=== PATIENT | female | born 1980 | race Caucasian/White ===

== ENCOUNTER 2023-04-26 19:28 | Inpatient (IN) | payer OTHER, SELFPAY ==
[2023-04-26] VITALS (24 sets, daily range): BP systolic 131–193; BP diastolic 68–95; PULSE 56–101; RESP 13–38; TEMP 36–37.3; O2SAT 94–99; BMI 34.7
--- NOTE | 2023-04-26 19:53 | DI.RAD.S_ITS ---
PROCEDURE: XR FOREARM LT 2V INDICATIONS: trauma TECHNIQUE: 2 views of the forearm were acquired. COMPARISON: None. FINDINGS: Bones: No dislocations. No suspicious bony lesions. There are angulated fractures at the distal diaphysis of both the radius and ulna, mildly comminuted at the ulnar fracture and with fracture planes remaining in general apposition. Soft tissues: No suspicious soft tissue calcifications or masses. IMPRESSION: Angulated mildly comminuted fractures involving the distal radius and ulna diaphyses. Dictated by: Dae Wang M.D. on 04/26/2023 at 20:30 Approved by: Dae Wang M.D. on 04/26/2023 at 20:34
[2023-04-26] MEDS: KETOROLAC 30 MG/ML VIAL 15 MG IV (20:00)
[2023-04-26] MEDS: ONDANSETRON 4 MG/2 ML INJ IV (20:00)
[2023-04-26] MEDS: HYDROMORPHONE 0.5 MG INJ IV ×2 (20:00→20:18)
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
[2023-04-26 20:20] LABS: Add Manual Diff / Slide Review NO; Basophils Absolute Auto 100 /uL (0-100); Basophils Percent Auto 0.9 % (0-2); Eosinophils Absolute Auto 0 /uL (0-450); Eosinophils Percent Auto 0.3 % (2-4); Hematocrit 37.3 % (36-46); Hemoglobin 12.4 g/dL (12.0-16.0); Lymphocytes Absolute Auto 1300 /uL (1100-4500); Mean Corpuscular HGB Conc 33.4 % (30-36); Mean Corpuscular Hemoglobin 31.2 PG (26-34); Mean Corpuscular Volume 93.6 fL (80-100); Monocytes Absolute Auto 600 /uL (0-900); Monocytes Percent Auto 5.4 % (3-14); Neutrophils Absolute Auto 8500 /uL (1500-7000); Neutrophils Percent Auto 81.4 % (50-75); Platelet Count 281 X10^3/uL (150-400); Red Blood Cell Count 3.98 X10^6/uL (4.0-5.2); Red Cell Distribution Width 13.1 % (11.6-14.8); White Blood Cell Count 10.4 X10^3/uL (4.5-11.0)
[2023-04-26 20:33] LABS: Alanine Aminotransferase 35 IU/L (<35); Albumin 4.6 g/dL (3.5-5.0); Albumin Globulin Ratio 1.4 (1.0-2.8); Alkaline Phosphatase 39 U/L (38-126); Aspartate Aminotransferase 34 IU/L (14-36); BUN Creatinine Ratio 29.1 (6-22); Bilirubin Total 0.4 mg/dL (0.2-1.3); Blood Urea Nitrogen 23 mg/dL (7-17); Calcium 9.6 mg/dL (8.4-10.2); Carbon Dioxide 28 mmol/L (22-32); Chloride 102 mmol/L (98-107); Estimated Glomerular Filt Rate > 60 mL/min (>60); Globulin 3.3 g/dL (1.7-4.1); Glucose 116 mg/dL (70-100); HEMOLYSIS 23 (0-50); Lipase 113 U/L (23-300); Potassium 4.3 mmol/L (3.4-5.1); Sodium 138 mmol/L (137-145); Total Protein 7.9 g/dL (6.3-8.2)
[2023-04-26] MEDS: KETAMINE 500 MG/10 ML INJ 85 MG IV (21:15)
--- NOTE | 2023-04-26 22:26 | DI.RAD.S_ITS ---
PROCEDURE: XR FOREARM LT 2V INDICATIONS: post reduction TECHNIQUE: 2 views of the forearm were acquired. COMPARISON: [facility], CR, XR FOREARM LT 2V, 04/26/2023, 19:53. FINDINGS: Bones: No previously unidentified fractures or dislocations. No suspicious bony lesions. There is significant improved malalignment after reduction and splinting. Soft tissues: No suspicious soft tissue calcifications or masses. IMPRESSION: Successful closed reduction and splinting in near normal anatomic alignment. Dictated by: Dae Wang M.D. on 04/26/2023 at 22:41 Approved by: Dae Wang M.D. on 04/26/2023 at 22:42
[2023-04-26] MEDS: LORazepam 2 MG/ML INJ 0.5 MG IV (23:00)
[2023-04-26] MEDS: SODIUM CHLORIDE 0.9% 1,000 ML 125 ML IV (23:48)
[2023-04-27] VITALS (14 sets, daily range): BP systolic 131–176; BP diastolic 70–102; PULSE 63–91; RESP 12–19; TEMP 36.2–37; O2SAT 91–100; BMI 34.7
--- NOTE | 2023-04-27 02:37 | PC.NURSE ---
Pt admitted from ER around 2229. Pt alert and able to transfer to bed with 1 assist. Pt does fall asleep while conversing with this nurse. According to ER Staff pt was having a hot flash/nauseous after iv pain medications given. ER staff stated she got IV lorazepam and an 1L IVF bolus. pt allergic to percocet states it makes me nauseous and I start vomiting. Plan is to give patient IV dilaudid as needed for pain tonight since she is NPO. Unable to do medication reconciliation due to patient still sedated, According to her she is on a prednisone laquita fpr gout. will have spouse bring in medication list in the morning. Plan is for patient to have surgery early in the am.
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
[2023-04-27] MEDS: ONDANSETRON 4 MG/2 ML INJ IV ×2 (08:28→12:59)
[2023-04-27] MEDS: LACTATED RINGERS 1,000 ML 42 ML IV ×3 (08:28→13:29)
[2023-04-27] MEDS: HYDROMORPHONE 2 MG INJ 0.5 MG IV (08:42)
--- NOTE | 2023-04-27 08:44 | PC.NURSE ---
Addendum entered by Stephanie Whitaker R.N. 04/27/23 15:39: pt c/o left arm pain 7/10 medicated with Dilaudid 2mg po with zofran Addendum entered by Stephanie Whitaker R.N. 04/27/23 15:23: pt more awake up to bsc with min assist-started dc instructions Addendum entered by Stephanie Whitaker R.N. 04/27/23 14:02: 1315 to room 210 from Pacu- c/o left arm surgical pain then nods off back to sleep snoring recently medicated in pacu, vss attempting to void using bedpan.. left arm in hard cast with wrap and in sling ice applied, unable to assess radial pulse d/t cast placement, pt can wiggle fingers, good sensation and cap refill less the 2 sec. vss family in room Original Note: 0820 pt up to BR with SBA voided and changed clothes for surgery-to OR at 0830 family in room.
[2023-04-27] MEDS: CEFAZOLIN 2 GM/100 ML PREMIX 100 ML IV ×2 (09:34→19:37)
--- NOTE | 2023-04-27 09:54 | SUR.OPER ---
Supine on padded OR bed, head on pillow, RIGHT arm secured on padded arm boards at <90 degrees abduction, LEFT ARM ON HAND TABLE, legs uncrossed, safety belt at thigh, tape over blanket over lower legs.
[2023-04-27] MEDS: BUPIVACAINE 0.25% (PF) 30 ML, EPINEPHrine 0.15 MG INJ (10:01)
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
[2023-04-27] MEDS: OXYCODONE/ACETAMINOPHEN 5/325 TABLET 1 TAB PO (12:59)
[2023-04-27] MEDS: ONDANSETRON 4 MG ODT PO ×2 (15:35→19:36)
[2023-04-27] MEDS: HYDROMORPHONE 2 MG TABLET PO (15:36)
[2023-04-27] MEDS: HYDROMORPHONE 1 MG INJ 0.5 MG IV (19:37)
[2023-04-27] MEDS: DOCUSATE 100 MG CAPSULE PO (21:01)
[2023-04-28] MEDS: CEFAZOLIN 2 GM/100 ML PREMIX 100 ML IV (01:42)
[2023-04-28] MEDS: HYDROMORPHONE 2 MG TABLET PO ×3 (03:49→10:29)
[2023-04-28 04:30] VITALS: BP 133/70; PULSE 63; RESP 16; TEMP 36.2; O2SAT 99
[2023-04-28] MEDS: DOCUSATE 100 MG CAPSULE PO (08:32)
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
== END 2023-04-28 10:41 | disposition home or self-care (01) | DRG 512 ==
LOC: ED 19:50 → AC 21:51
PROVIDERS: Admitting Provider Orthopaedic Surgery Foot and Ankle Surgery; Emergency Provider Emergency Medicine; Referring Provider Emergency Medicine; Visit Provider Orthopaedic Surgery Foot and Ankle Surgery
PROC: 0PSJ04Z Reposition Left Radius with Internal Fixation Device, Open Approach (ICD-10-PCS; principal; 2023-04-27 08:30)
DX: S52.602A Unspecified fracture of lower end of left ulna, initial encounter for closed fracture (principal); S52.332A Displaced oblique fracture of shaft of left radius, initial encounter for closed fracture; V86.55XA Driver of 3- or 4- wheeled all-terrain vehicle (ATV) injured in nontraffic accident, initial encounter; Z20.822 Contact with and (suspected) exposure to COVID-19
CPT/HCPCS: 25505; 25650; 36415; 73090; 80053; 83690; 85025; 94760; 96374; 96375; 99285; J0171; J0690; J1100; J1170; J1885; J2060; J2405; J2704; J3010

== ENCOUNTER → 2024-05-27 08:16 | Outpatient (CLI) | payer OTHER, SELFPAY ==
[2023-04-26 23:39] VITALS: BMI 34.7
--- NOTE | 2024-05-27 08:19 | DI.MRI.S_ITS ---
PROCEDURE: MR SHOULDER LT W CON INDICATIONS: PAIN IN LEFT SHOULDER TECHNIQUE: After the administration of 12 mL of dilute intra-articular Gadolinium contrast, oblique coronal T1 and T2 spin echo with fat saturation, oblique sagittal T1 spin echo with and without fat saturation, oblique sagittal T2 fast spin echo with fat saturation, axial T1 spin echo with fat saturation through the shoulder. COMPARISON: None. FINDINGS: Image quality: Excellent. Rotator cuff: Low-grade articular surface partial-thickness tear involving distal supraspinatus at its insertion on the humeral head is seen. Distal infraspinatus tendinosis is seen. The subscapularis tendon is intact. No full-thickness rotator cuff tendon rupture. No rotator cuff muscle atrophy on sagittal images. Bones and bursae: No bone marrow contusions or fractures. Mild acromioclavicular joint osteoarthritic changes are seen with joint space narrowing and downward osteophyte formation depressing the musculotendinous junction of supraspinatus. Type 2 acromion, without an os acromiale. Subcortical cystic areas are seen in posterior inferior glenoid. Capsule and soft tissues: There is subtle T2 hyperintense signal and contrast extension involving posterior inferior labrum. The glenohumeral ligaments appear intact. The long head of the biceps tendon demonstrates normal location and morphology. The rotator interval appears normal, without fibrosis. The coracohumeral ligament is of normal thickness. No intra-articular bodies. IMPRESSION: 1. Low-grade articular surface partial-thickness tear involving distal supraspinatus. Distal infraspinatus tendinosis. No full-thickness rotator cuff tendon rupture. No muscle atrophy. 2. Mild acromioclavicular joint osteoarthritis. No acute fracture or dislocation. Subcortical cystic area involving posterior inferior glenoid is seen. No gross loose bodies. 3. Suggestion of posterior inferior labral tear. Dictated by: Miguel Dye M.D. on 05/27/2024 at 12:43 Approved by: Miguel Dye M.D. on 05/27/2024 at 12:48
--- NOTE | 2024-05-27 08:19 | DI.RAD.S_ITS ---
PROCEDURE: FL SHOULDER INJECTION MR/CT LT INDICATIONS: PAIN IN LEFT SHOULDER COMPARISON: None. TECHNIQUE: The indications, alternatives, benefits, risks, and complications of the procedure were explained to the patient. Written informed consent was obtained and placed in the chart. The shoulder was examined fluoroscopically and a site for needle placement chosen for entry into the glenohumeral joint from an anterior approach. The skin was prepped and draped in a sterile fashion, and 1% lidocaine infiltrated from skin down to joint capsule. A spinal needle was inserted into the glenohumeral joint, and a small amount of iodinated contrast media injected to confirm intra-articular placement of the needle tip. This was followed by approximately 12 mL dilute solution of a gadolinium containing MR contrast agent. The needle was removed and a dressing was applied. The patient was given postprocedural instructions and sent to the MR suite for MR imaging. FINDINGS: A single fluoroscopic spot image demonstrates intra-articular location of injected iodinated contrast. IMPRESSION: Successful fluoroscopically guided administration of dilute Gadolinium solution into the shoulder joint for MR arthrogram. Dictated by: Miguel Dye M.D. on 05/27/2024 at 13:49 Approved by: Miguel Dye M.D. on 05/27/2024 at 13:49
[2024-05-27] MEDS: LIDOCAINE 1% 20 ML INJ (09:06)
[2024-05-27] MEDS: SODIUM CHLORIDE 0.9 % 20 ML VIAL IV (09:07)
== END ==
LOC: RAD 08:18
PROVIDERS: Referring Provider Nurse Practitioner Family; Visit Provider Nurse Practitioner Family
DX: M75.112 Incomplete rotator cuff tear or rupture of left shoulder, not specified as traumatic (principal); M19.012 Primary osteoarthritis, left shoulder; M25.512 Pain in left shoulder
CPT/HCPCS: 23350; 73040; 73222; A9579; Q9967

== ENCOUNTER → 2025-01-25 16:59 | Outpatient (CLI) | payer OTHER, SELFPAY ==
[2023-04-26 23:39] VITALS: BMI 34.7
[2025-01-25 18:38] LABS: Follicle Stimulating Hormone 3.69 mIU/mL
[2025-01-25 18:54] LABS: Estradiol, Total 32.4 pg/mL
== END ==
PROVIDERS: Referring Provider Obstetrics & Gynecology; Visit Provider Obstetrics & Gynecology
DX: L65.9 Nonscarring hair loss, unspecified (principal); N95.1 Menopausal and female climacteric states
CPT/HCPCS: 36415; 82627; 82670; 83001; 83002; 84402; 84403

== ENCOUNTER → 2025-02-04 17:12 | Outpatient (CLI) | payer OTHER, SELFPAY ==
[2023-04-26 23:39] VITALS: BMI 34.7
--- NOTE | 2025-02-04 17:13 | DI.RAD.S_ITS ---
PROCEDURE: XR LUMBAR SPINE MIN 4V INDICATIONS: BACK PAIN TECHNIQUE: 5 views of the lumbar spine were acquired, including bilateral oblique views. COMPARISON: None. FINDINGS AND IMPRESSION: 7 mm of L4 on L5 anterolisthesis. Vertebral body heights are well maintained. No traumatic subluxation. On oblique views, there is no definite pars defects, although evaluation is limited by overlying bowel gas. Cholecystectomy clips. Moderate fecal loading. IUD in place. If there is high concern for further derangement, consider MRI evaluation. Dictated by: Adrian Mahoney M.D. on 02/04/2025 at 17:40 Approved by: Adrian Mahoney M.D. on 02/04/2025 at 17:41
== END ==
PROVIDERS: Referring Provider Physical Medicine & Rehabilitation; Visit Provider Physical Medicine & Rehabilitation
DX: M54.9 Dorsalgia, unspecified (principal); Z97.5 Presence of (intrauterine) contraceptive device
CPT/HCPCS: 72110

== ENCOUNTER → 2025-03-14 16:43 | Outpatient (CLI) | payer OTHER, SELFPAY ==
[2023-04-26 23:39] VITALS: BMI 34.7
--- NOTE | 2025-03-14 16:44 | DI.MRI.S_ITS ---
PROCEDURE: MR LUMBAR SPINE WO CON INDICATIONS: Progressive axial low back pain episodic TECHNIQUE: Noncontrast sagittal T1 spin echo and T2 fast echo, sagittal STIR, and T2 fast spin echo through the lumbar spine. In cases with scoliosis, additional coronal T2 fast spin echo may be performed. COMPARISON: [facility], CR, XR LUMBAR SPINE MIN 4V, 02/04/2025, 17:19. FINDINGS: Image quality: Excellent. Alignment and Curvature: 4 mm anterolisthesis L4 on L5. Bone Marrow: Marrow is of normal overall signal. No acute vertebral body compression fractures. Spinal Cord: Conus medullaris terminates at the top of L1 level. Visualized cord demonstrates normal signal and size. Paraspinous Soft Tissues: No paravertebral masses. T12-L1: Normal appearance. L1-L2: Normal appearance. L2-L3: Normal appearance. L3-L4: Disc desiccation. Disc bulge. Mild facet hypertrophy. Left foraminal annulus tear. No canal stenosis or foraminal stenosis. L4-L5: 4 mm anterolisthesis. Disc bulge. Somewhat prominent facet and ligament hypertrophy. Rejz-hq-hvfubodb canal stenosis. No significant foraminal stenosis. Reference sagittal image 10 of series 2 and axial image 20 of series 6. L5-S1: Disc bulge. Facet hypertrophy. No canal stenosis or foraminal stenosis. IMPRESSION: 1. Multilevel underlying facet arthropathy. 2. Wmcs-ur-jltxatqu canal stenosis at L4-L5. 3. No canal stenosis or foraminal stenosis at other levels. Dictated by: José Luis Gale M.D. on 03/15/2025 at 8:36 Approved by: José Luis Gale M.D. on 03/15/2025 at 8:41
== END ==
PROVIDERS: Referring Provider Physical Medicine & Rehabilitation; Visit Provider Physical Medicine & Rehabilitation
DX: M43.16 Spondylolisthesis, lumbar region (principal); M47.816 Spondylosis without myelopathy or radiculopathy, lumbar region; M47.817 Spondylosis without myelopathy or radiculopathy, lumbosacral region; M48.061 Spinal stenosis, lumbar region without neurogenic claudication
CPT/HCPCS: 72148

== ENCOUNTER 2025-03-16 10:11 | Day surgery (SDC) | payer OTHER, SELFPAY ==
[2023-04-26 23:39] VITALS: BMI 34.7
[2025-03-16] MEDS: LACTATED RINGERS 1,000 ML 42 ML IV (10:35)
[2025-03-16 10:44] VITALS: BP 129/81; PULSE 61; RESP 16; TEMP 36.4; O2SAT 99
[2025-03-16] MEDS: ONDANSETRON 4 MG/2 ML INJ IV (10:53)
--- NOTE | 2025-03-16 11:00 | PM.HP.IH.1 ---
History of Present Illness History of Present Illness Date Patient Seen: 03/16/25 Chief complaint: SDC Narrative: For screening colonoscopy [facility] Medical History (Updated 03/09/25 @ 09:13 by Gama Willett DO) Facet arthropathy, lumbar Lumbar radiculopathy Spondylolisthesis at L4-L5 level Social History household members: spouse Smoking Status: Never smoker alcohol intake: current Meds Home Medications and Allergies Home Medications Medication Instructions Recorded Confirmed Type meloxicam 7.5 mg tablet 7.5 mg PO BID 01/25/25 03/16/25 History tizanidine 4 mg tablet 4 mg PO 3XD 01/25/25 03/16/25 History levonorgestrel 21 mcg/24 hr (up to intrauterine 01/28/25 03/09/25 History 8 years) 52 mg intrauterine device (Mirena) acetaminophen 650 mg 650 mg PO Q12H 03/09/25 03/16/25 History tablet,extended release (Tylenol Arthritis Pain) loratadine 10 mg tablet (Claritin) 10 mg PO DAILY 03/09/25 03/16/25 History Allergies Allergy/AdvReac Type Severity Reaction Status Date / Time oxycodone [From Percocet] Allergy Mild Nausea Verified 03/16/25 10:37 steri strips AdvReac Uncoded 03/16/25 10:37 Exam Vital Signs (past 8 hours): - 03/16/25 10:44 Temperature 97.6 F Pulse Rate 61 Respiratory Rate 16 Blood Pressure 129/81 Pulse Oximetry 99 Oxygen Delivery Method Room Air Oxygen Delivery Method Room Air Narrative Exam Narrative: Oropharynx free of lesions Chest clear to auscultation percussion Cardiac exam reveals no S3 or murmur Assessment & Plan Assessment & Plan narrative: Need for 1st screening colonoscopy. Risks, benefits, alternatives have been explained. Time-Based Coding :: [TOTAL MINUTES] spent with patient and on the chart (including review of chart, obtaining history, exam, reviewing outside data, placing orders, documenting exam and treatment plan, and counseling patient) on [DATE]. PROFEE Bone Density Technician Document charge(s): No
--- NOTE | 2025-03-16 11:02 | PM.OP.COLON ---
Operative Date/Time/Diagnoses Date of procedure: 03/16/25 Time of procedure: 11:21 Pre-op diagnosis: See indication and findings Post-op diagnosis: same Procedure & Clinicians Study performed: Colonoscopy Same procedure as scheduled: Yes Indications: First screening Surgeon: Destinee Ya Procedure Notes Procedure in detail: After informed consent was obtained the patient was placed in left lateral decubitus position. The video colonoscope was introduced the rectum slowly advanced cecum. Preparation was good. On slow withdrawal mucosa was carefully examined. The scope was removed. The patient tolerated procedure well. Blood loss none Complications none Sedation mac Findings 1. Normal colonoscopy to cecum Patient should have follow-up colonoscopy in 10 years
[2025-03-16 11:23] VITALS: BP 112/79; PULSE 72; RESP 14; TEMP 36.4; O2SAT 99
[2025-03-16 11:29] VITALS: BP 128/89; PULSE 80; RESP 23; O2SAT 99
[2025-03-16 11:32] VITALS: BP 113/81; PULSE 67; RESP 14; TEMP 36.4; O2SAT 99
== END 2025-03-16 11:47 | disposition home or self-care (01) ==
PROVIDERS: Visit Provider Internal Medicine Gastroenterology
PROC: 0DJD8ZZ Inspection of Lower Intestinal Tract, Via Natural or Artificial Opening Endoscopic (ICD-10-PCS; CPT 45378; principal; 2025-03-16 11:30)
DX: Z12.11 Encounter for screening for malignant neoplasm of colon (principal)
CPT/HCPCS: 45378; J2405; J2704

== ENCOUNTER 2025-03-29 08:12 | Outpatient (CLI) | payer OTHER, SELFPAY ==
[2023-04-26 23:39] VITALS: BMI 34.7
[2025-03-23 11:58] VITALS: BMI 34.7
[2025-03-29] VITALS (10 sets, daily range): BP systolic 146–176; BP diastolic 78–97; PULSE 55–75; RESP 14–16; TEMP 36.6; O2SAT 96–99
[2025-03-29] MEDS: MIDAZOLAM 2 MG/2 ML VIAL IV (09:21)
[2025-03-29] MEDS: LIDOCAINE 1% 20 ML 3 ML INJ (09:25)
[2025-03-29] MEDS: iopamidoL 15 ML VIAL 3 ML INJ (09:26)
[2025-03-29] MEDS: BUPIVACAINE 0.5% (PF) 10 ML VIAL 5 ML INJ (09:26)
--- NOTE | 2025-03-29 09:44 | P.PCN_ITS ---
Date/Time/Diagnoses Date of procedure: 03/29/25 Time of procedure: 09:44 Pre-procedure diagnosis: 1. FACET ARTHROPATHY Post-procedure diagnosis: same Procedure Notes Procedure: 1. BILATERAL- L4, L5 and S1 DIAGNOSTIC MB BLOCKS with LA Anesthetic Indications: Gloria is referred for treatment of Bilateral Axial LBP. Physician: Gama Willett Total Fluoroscopy time (seconds): 12 Total sedation minutes: 19 Complications: none Procedure in detail & Post-procedure care: DESCRIPTION OF PROCEDURE Fluoroscopically guided, contrast-controlled bilateral L4, L5 and S1 medial branch blocks with 0.5cc of 0.5% Marcaine. Following review of allergy and review of potential side effects and complications, including, but not necessarily limited to, infection, allergic reaction, local tissue breakdown, nerve injury, paralysis, stroke and possible , the patient indicated that the patient understood and agreed to proceed. An informed consent document was signed by the patient, witnessed by a nurse, and placed in the patient's chart. After review of previous anaesthesic history and IV conscious sedation the patient was deemed safe to proceed with today's procedure with IV conscious sedation as ASA class II designation. Safety time-out was performed to confirm patient ID, procedure to be performed and site of procedure. IV sedation was accomplished with a combination of 4mg of Versed was administered by the RN after DO order, titrated to patient comfort during the course of the procedure while the patient remained responsive to all verbal commands In the prone position, following sterile prep and drape of the lumbar region, the right L4, L5 and S1 anatomical location of the medial branch of the dorsal ramus was identified fluoroscopically. Subsequently an anesthetic skin wheal using 1% lidocaine solution was initiated at each of the anatomical spots. Subsequently then a 22-gauge 3.5-inch spinal needle was atraumatically introduced and advanced under fluoroscopic guidance at each of the corresponding sites at the right L4, L5 and S1 MB. After negative aspiration, 0.2cc of Isovue 200 was injected, confirming placement without vascular or intrathecal uptake. Subsequently then 0.5cc of 0.5% Marcaine solution was injected at each of the corresponding sites at the right L4, L5 and S1 medial branch locations. The identical procedure was replicated on the left. The patient tolerated the procedure well without signs or symptoms of complications prior to transfer to the recovery area continued monitoring without incident. Post-procedure, the patient was monitored initiating provocative activities to measure the amount of relief from block of the facetogenic pain. The patient reported a VAS of 7 prior to the procedure and a post-procedure VAS of 1. It has been a pleasure to assist in the diagnostic and therapeutic care of your patient. POST OP INSTRUCTIONS The patient was provided with a Pain Log to complete over the next several hours and subsequent days prior to the patient's follow up with the ordering physician. If the patient has professor of theatre relief to the solution applied, then they may be a candidate for medial branch rhizotomy. The patient is aware, was provided, once again, with a Pain Log and will follow up with the referring physician for review and clinical correlation
--- NOTE | 2025-03-31 17:24 | PC.NURSE ---
2 mg of IV Midazolam was administered at 0921 and at 0929 for a total of 4 mg of IV Midazolam on 03/29/25 during the procedure per verbal orders from Dr. Willett.
== END 2025-03-29 10:00 | disposition home or self-care (01) ==
LOC: RAD 08:13
PROVIDERS: Referring Provider Physical Medicine & Rehabilitation; Visit Provider Physical Medicine & Rehabilitation
DX: M47.816 Spondylosis without myelopathy or radiculopathy, lumbar region (principal)
CPT/HCPCS: 64491; 64493; 99152; J2250

== ENCOUNTER 2025-04-28 08:15 | Outpatient (CLI) | payer OTHER, SELFPAY ==
[2025-03-23 11:58] VITALS: BMI 34.7
[2025-04-28] VITALS (10 sets, daily range): BP systolic 147–183; BP diastolic 77–99; PULSE 56–75; RESP 14–16; TEMP 36.6; O2SAT 98–100
[2025-04-28] MEDS: MIDAZOLAM 2 MG/2 ML VIAL IV ×3 (09:11→09:18)
[2025-04-28] MEDS: LIDOCAINE 1% 20 ML 5 ML INJ (09:27)
[2025-04-28] MEDS: iopamidoL 15 ML VIAL 3 ML INJ (09:27)
[2025-04-28] MEDS: LIDOCAINE 2% INJ MDV 20ML 5 ML INJ (09:28)
--- NOTE | 2025-04-28 10:11 | P.PCN_ITS ---
Date/Time/Diagnoses Date of procedure: 04/28/25 Time of procedure: 10:11 Pre-procedure diagnosis: 1. FACET ARTHROPATHY Post-procedure diagnosis: same Procedure Notes Procedure: 1. BILATERAL- L4, L5 and S1 DIAGNOSTIC MB BLOCKS with SA Anesthetic Indications: Gloria is referred for treatment of Bilateral Axial LBP. Physician: Gama Willett Total Fluoroscopy time (seconds): 8 Total sedation minutes: 21 Complications: none Procedure in detail & Post-procedure care: DESCRIPTION OF PROCEDURE Fluoroscopically guided, contrast-controlled bilateral L4, L5 and S1 medial branch blocks with 0.5cc of 2% Lidocaine. Following review of allergy and review of potential side effects and complications, including, but not necessarily limited to, infection, allergic reaction, local tissue breakdown, nerve injury, paralysis, stroke and possible , the patient indicated that the patient understood and agreed to proceed. An informed consent document was signed by the patient, witnessed by a nurse, and placed in the patient's chart. After review of previous anaesthesic history and IV conscious sedation the patient was deemed safe to proceed with today's procedure with IV conscious sedation as ASA class II designation. Safety time-out was performed to confirm patient ID, procedure to be performed and site of procedure. IV sedation was accomplished with a combination of 4mg of Versed was administered by the RN after DO order, titrated to patient comfort during the course of the procedure while the patient remained responsive to all verbal commands In the prone position, following sterile prep and drape of the lumbar region, the right L4, L5 and S1 anatomical location of the medial branch of the dorsal ramus was identified fluoroscopically. Subsequently an anesthetic skin wheal using 1% lidocaine solution was initiated at each of the anatomical spots. Subsequently then a 22-gauge 3.5-inch spinal needle was atraumatically introduced and advanced under fluoroscopic guidance at each of the corresponding sites at the right L4, L5 and S1 MB. After negative aspiration, 0.2cc of Isovue 200 was injected, confirming placement without vascular or intrathecal uptake. Subsequently then 0.5cc of 2% Lidocaine solution was injected at each of the corresponding sites at the right L4, L5 and S1 medial branch locations. The identical procedure was replicated on the left. The patient tolerated the procedure well without signs or symptoms of complications prior to transfer to the recovery area continued monitoring without incident. Post-procedure, the patient was monitored initiating provocative activities to measure the amount of relief from block of the facetogenic pain. The patient reported a VAS of 7 prior to the procedure and a post-procedure VAS of 1. It has been a pleasure to assist in the diagnostic and therapeutic care of your patient. POST OP INSTRUCTIONS The patient was provided with a Pain Log to complete over the next several hours and subsequent days prior to the patient's follow up with the ordering physician. If the patient has energy conservation technician relief to the solution applied, then they may be a candidate for medial branch rhizotomy. The patient is aware, was provided, once again, with a Pain Log and will follow up with the referring physician for review and clinical correlation
== END 2025-04-28 09:55 | disposition home or self-care (01) ==
LOC: RAD 08:15
PROVIDERS: Referring Provider Physical Medicine & Rehabilitation; Visit Provider Physical Medicine & Rehabilitation
DX: M47.816 Spondylosis without myelopathy or radiculopathy, lumbar region (principal); M47.817 Spondylosis without myelopathy or radiculopathy, lumbosacral region
CPT/HCPCS: 64493; 64494; 99152; J2250

== ENCOUNTER 2025-05-19 07:28 | Outpatient (CLI) | payer OTHER, SELFPAY ==
[2025-03-23 11:58] VITALS: BMI 34.7
[2025-05-19] VITALS (13 sets, daily range): BP systolic 153–183; BP diastolic 76–103; PULSE 53–72; RESP 11–18; TEMP 36.8; O2SAT 98–100
[2025-05-19] MEDS: MIDAZOLAM 2 MG/2 ML VIAL IV ×2 (08:32→08:39)
[2025-05-19] MEDS: BUPIVACAINE 0.5% (PF) 10 ML VIAL 5 ML INJ (08:38)
[2025-05-19] MEDS: LIDOCAINE 1% 20 ML 5 ML INJ (08:38)
[2025-05-19] MEDS: MIDAZOLAM 2 MG/2 ML VIAL 1 MG IV (08:56)
--- NOTE | 2025-05-19 09:17 | P.PCN_ITS ---
Date/Time/Diagnoses Date of procedure: 05/19/25 Time of procedure: 09:17 Pre-procedure diagnosis: 1. RECALCITRANT FACET ARTHROPATHY Post-procedure diagnosis: same Procedure Notes Procedure: 1. BILATERAL L4 AND L5 MEDIAL BRANCH RADIOFREQUENCY NEUROTOMY AND S1 DORSAL RAMUS BRANCH RADIOFREQUENCY NEUROTOMY Indications: Aditi is referred for treatment of facet arthropathy. Physician: Gama Willett Total Fluoroscopy time (seconds): 23 Total sedation minutes: 40 Complications: none Procedure in detail & Post-procedure care: DESCRIPTION OF PROCEDURE Bilateral L4 and L5 medial branch radiofrequency neurotomy and bilateral S1 dorsal ramus radiofrequency neurotomy under fluoroscopy with conscious sedation. The patient is well known to this clinic having undergone previous facet injections with good but temporary relief. The patient has experienced appropriate, concordant relief with previous facet and median branch blocks but the patient's pain has been recalcitrant to further conservative measures. Therefore, based upon the patient's relief and persistent symptoms, the patient is considered an appropriate candidate for facet rhizotomy. All of the patient's questions regarding the risks versus benefits of the procedure, including, but not limited to, bleeding, infection, temporary as well as lasting nerve injury, paralysis, stroke, and , as well treatment alternatives were answered to satisfaction. After obtaining informed consent, denial of pertinent drug allergies, as well as being made aware of the potential risks of bleeding, infection, spinal cord trauma, paralysis, temporary and permanent nerve damage, seizure, stroke, and possible , the patient was brought to the fluoroscopy suite and positioned prone on the fluoroscopy table. The lumbar region was prepped in usual sterile fashion and covered with a fenestrated drape in the usual sterile fashion. Appropriate monitors applied including pulse oximeter, pulse, and blood pressure for regular monitoring thr oughout the procedure. After review of previous anaesthesic history and IV conscious sedation the patient was deemed safe to proceed with today's procedure with IV conscious sedation as ASA class II designation. Safety time-out was performed to confirm patient ID, procedure to be performed and site of procedure. IV sedation was accomplished with a combination of 5mg of Versed administered by the RN after DO order, titrated to patient comfort during the course of the procedure while the patient remained responsive to all verbal commands. After local infiltration using 1% lidocaine, under fluoroscopic guidance, a 10- cm RF insulated needle with a 10-mm active tip was positioned parallel to the junction of the right sacral ala and the superior articulating process where the S1 dorsal ramus resides. Needle placement was confirmed with motor stimulation of .5v on the right which produced local stimulation without radicular component. The stimulation was then increased to 2v with, once again, only local multifidus stimulation without radicular component. The needle was then removed and the identical procedure was performed along the length of the right L5 medial branch with motor stimulation at .7v on the right. The identical procedure was once again performed along the length of the right L4 medial branch with motor stimulation of .5v on the right. The medial branches were then anesthetised with 0.5% Marcaine. This was then followed by two discreet lesions performed at 80 degrees Celsius for 90 seconds each. The identical procedure was repeated on the left. The patient tolerated the procedure well without signs or symptoms of complications prior to transfer to the recovery area continued monitoring without incident. The patient was then transferred to the recovery area where they were observed for an appropriate period of time after the injection. The patient reported a VAS score of 8 prior to the procedure and a post-procedure VAS of 1. POST OP INSTRUCTIONS The patient was provided a Pain Log to continue to record the patient's response to the target-specific procedure prior to the patient's follow-up visit with the referring physician. Additionally, specific post-injection care instructions and a contact number to our office were provided if concerns arise regarding possible complications associated with the procedure are suspected.
== END 2025-05-19 09:30 | disposition home or self-care (01) ==
LOC: RAD 07:28
PROVIDERS: Referring Provider Physical Medicine & Rehabilitation; Visit Provider Physical Medicine & Rehabilitation
DX: M47.816 Spondylosis without myelopathy or radiculopathy, lumbar region (principal); M47.817 Spondylosis without myelopathy or radiculopathy, lumbosacral region
CPT/HCPCS: 64635; 64636; 99152; 99153; J2250